=== PATIENT | female | born 1985 | race Caucasian/White ===

== ENCOUNTER 2016-08-31 09:00 | Emergency (ER) | payer MEDICAID ==
[2016-08-31 09:34] VITALS: RESP 16; TEMP 97.5
[2016-08-31 10:16] LABS: COLOR YELLOW; LEUKOCYTE ESTERASE,URINE 1+ (NEGATIVE); NITRITE,URINE POSITIVE (NEGATIVE)
[2016-08-31 10:22] LABS: BACTERIA 4+ /hpf (NONE SEEN); YEAST OCCASIONAL /hpf (NONE SEEN)
--- NOTE | 2016-08-31 10:53 | EDPHY ---
H & P Stated Complaint: PT. with GRANADOS x2 weeks. PT. 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 Her shunt was last revised 14 years ago. She believes that it was revised at that time because of growth; she has never had shunt failure or shunt infection. She presents today with 2 weeks of headaches. They have been increasing in intensity and frequency over the past 2 weeks. At the time of my interview she has a mild headache. The headaches are global, worse on the left. It is an aching sensation that she experiences. She has not identified any precipitating factors. Ibuprofen helps some. She took ibuprofen 800 mg this morning. She has not had fever. She denies having a stiff or painful neck although she occasionally experiences neck discomfort. She has not had vomiting or abdominal pain. She was diagnosed with an ear infection about 3 weeks ago when she presented with some ear pain and sore throat. At that time she used antibiotic drops and Flovent. Her symptoms have resolved. She had left dental work done 2 months ago and at that time she had some left- sided jaw pain which has resolved. REVIEW OF SYSTEMS: A ten point review of systems was performed and is negative with the exception of the items mentioned in the HPI. 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 Her shunt was last revised 14 years ago. 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 She smokes 1/2 to 1 pack of cigarettes daily. She does not use alcohol. She denies the use of illicit drugs. She has a boyfriend. - Physical Exam Exam: General Appearance: Alert. Vital signs reviewed. Blood pressure 151/101. Head: Normocephalic. Shunt palpable along the left skull. Eyes: Pupils equal and round, no conjunctival injection, no discharge. Anicteric. ENT, Mouth: Mucous membranes are moist, no oropharyngeal erythema or edema. Dentition in good repair. Neck: No lymphadenopathy, supple. No meningismus. Shunt tubing palpable on the left, no overlying redness or warmth. Respiratory: Lungs are clear to auscultation; no wheezes, rales, or rhonchi. Cardiovascular: Regular rate and rhythm; no murmur, rub, or gallop. Gastrointestinal: Abdomen is soft and nontender, no masses or organomegaly, bowel sounds normal. Well-healed surgical scars, 1 in the epigastrium and 1 at the umbilicus. No abdominal hernias appreciated. Skin: Warm and dry, no rashes on exposed skin, normal color. Back: Nontender to palpation over the thoracolumbar spine. No CVAT. Extremities: No lower extremity edema, no calf tenderness or swelling. Neurological: Alert and oriented. Moving all four extremities easily and equally. Cranial nerves II through XII are examined and are intact (visual acuity not tested). Strength is 5 over 5 bilaterally with testing of all major motor groups. Sensation is intact to light touch over all 4 extremities. Deep tendon reflexes are 2+ in the biceps and knees bilaterally. Gait is normal. [id number] is performed accurately. Psychiatric: Normal affect. Constitutional: Initial Vital Signs Temperature (C) 36.4 C 08/31/16 09:10 Heart Rate 82 08/31/16 09:10 Respiratory Rate 16 08/31/16 09:10 Blood Pressure 151/101 H 08/31/16 09:10 O2 Sat (%) 96 08/31/16 09:10 O2 Delivery Mode Room Air Allergies/Adverse Reactions: No Known Allergies Allergy (Verified 08/31/16 09:25) Home Medications: Medication Instructions Recorded NK [No Known Home Meds] 08/31/16 Medical Decision Making - Diagnostics Imaging Results: Imaging Impressions Abdomen X-Ray 08/31/16 09:31 Impression: No visible kinking or disruption, with HEADING PINNER shunt tubing tip adjacent to the right hemidiaphragm. Head CT 08/31/16 09:31 Impression: No acute intracranial findings. Findings discussed with Magui Wellington , at 1055 hours. Soft Tissue Neck X-Ray 08/31/16 09:31 Impression: Normal appearance of the visualized shunt tubing. I discussed the head CT and other x-rays with Dr. Rajan. No acute findings on the head CT. Shunt tubing that is visualized appears patent. Ventricles are small. No bleed. I reviewed the films myself. Imaging: Discussed imaging studies w/ call center manager Radiologist, I viewed and interpreted images myself ED Course/Re-evaluation: 30-year-old female with HEADING PINNER shunt in place who presents with headaches. She does not have a history of headaches. She took 800 mg of Tylenol earlier today and currently says she is very very mild head pain. No signs of infection--no fever or meningismus. She has not had vomiting. She denies any neurologic findings and has a normal neurologic exam today. Initial blood pressure 151/101. Repeat blood pressure 130/80. I reviewed the shunt series x-rays. There is no discontinuity of her shunt tubing. I have also reviewed her head CT and discussed with Dr. Rajan. I spoke with Dr. Jackson on the phone and he will be happy to see her in his office. He recommends that she follow up in 1-2 weeks if she continues with headache. Her urinalysis is positive for nitrates, leukocyte esterase, bacteria, and epithelial cells. She has absolutely no urinary symptoms and was questioned about this twice. Given that there are 3+ epithelial cells in the sample I suspect that it is not a clean catch. At this point in time I am not treating her with antibiotics. She is aware of this and if she develops urinary symptoms she will contact her primary care physician. At this point in time I do not suspect shunt failure or shunt infection. Her ventricles are small with the left lateral ventricle being decompressed. Slit ventricles are possibility. She will continue with Tylenol and ibuprofen for pain control. Danger signs were reviewed with her. Differential Diagnosis: I considered a differential diagnosis of headache including but not limited to shunt failure, shunt infection, slit ventricles, subarachnoid hemorrhage, migraine headache, tension headache and infectious causes such as meningitis, pharyngitis and sinusitis. - Data Points Laboratory Results: 08/31/16 08/31/16 09:55 09:55 Urine Color YELLOW Urine Appearance HAZY Urine pH 6.0 (5.0-7.5) Ur Specific [place] <= 1.005 (1.002-1.030) Urine Protein NEGATIVE (NEGATIVE) Urine Ketones NEGATIVE (NEGATIVE) Urine Blood TRACE H (NEGATIVE) Urine Nitrate POSITIVE H (NEGATIVE) Urine Bilirubin NEGATIVE (NEGATIVE) Urine Urobilinogen 0.2 EU EU (0.2-1.0) Ur Leukocyte Esterase 1+ H (NEGATIVE) Urine RBC 1-3 /hpf /hpf (0-3) Urine WBC 5-10 /hpf H /hpf (0-3) Ur Epithelial Cells 3+ /lpf H /lpf (NONE-1+) Urine Bacteria 4+ /hpf H /hpf (NONE SEEN) Urine Yeast OCCASIONAL /hpf H /hpf (NONE SEEN) Urine Glucose NEGATIVE (NEGATIVE) Urine Test NEGATIVE Medications Given: Discontinued Medications Acetaminophen (Tylenol) 650 mg PO EDNOW ONE Stop: 08/31/16 11:28 Last Admin: 08/31/16 11:37 Dose: 650 mg Departure - Departure Disposition: Home, Routine, Self-Care Clinical Impression: Headache Qualifiers: Headache type: unspecified Headache chronicity pattern: acute headache Intractability: not intractable Qualified Code(s): R51 - Headache Condition: Good Instructions: Acute Headache (ED) Additional Instructions: Your blood pressure was high when your in the emergency department. Your initial blood pressure was 150/100 with a repeat blood pressure of 130/80. You should have this rechecked with her primary care provider within the month. I am referring you to a neurosurgeon, Dr. Jackson. If you continue with headaches he recommends being seen in his office in the next 1-2 weeks. Let the office staff know that you were referred by the emergency department and that he is aware. If you are worse in any way--fever, intractable headache, vomiting, lethargy or confusion, difficulty with speech, new numbness or weakness--you should be re- evaluated immediately. As we discussed, I do not think that you have a urinary tract infection today. However, if you develop urinary urgency, feel like you have to go all the time, or have pain when you urinate you should be re-evaluated. Adult Pain & Fever Control: We recommend Acetaminophen (Tylenol) and Ibuprofen (Motrin,Advil) for pain and fever control. When fever is high or pain severe, both drugs can be used at the same time, but at different intervals. Please note the time differences. Your dose is: Acetaminophen 650mg every 4 to 6 hours Ibuprofen 400mg every 8 hours with food OR Note: do not take Acetaminophen with Hydrocodone (Vicodin, Lortab) or Oycodone (Percocet). These medications also contain Acetaminophen. No more than 3000mg of Acetaminophen should be taken in 24 hours (for an adult). Referrals: Mavis Gregg MD [Primary Care Provider] - As per Instructions
[2016-08-31] MEDS ORDERED: ACETAMINOPHEN 325 MG TAB PO ONE (11:27)
[2016-08-31 12:00] VITALS: BP 127/89; PULSE 74; O2SAT 95
== END 2016-08-31 11:59 | disposition home or self-care (01) ==
LOC: CED 09:00
DX: R51 Headache (principal); F17.210 Nicotine dependence, cigarettes, uncomplicated
CPT/HCPCS: 70360-PO; 70450-PO; 71020-PO; 74000-PO; 81003-PO; 81015-PO; 81025-PO